=== PATIENT | female | born 1980 | race American Indian/Alaskan Native ===

== ENCOUNTER 2017-12-29 20:21 | Emergency (ER) | payer SELFPAY ==
[2017-12-29 21:38] LABS: HCG Qualitative,Urine Negative (Negative)
[2017-12-29 21:42] LABS: Amorphous Crystals,Urine 1+; Bilirubin,Urine NEG (Negative); Blood,Urine NEG (Negative); Color,Urine Yellow (Yellow); Protein,Urine <15 mg/dL mg/dL (Negative); RBC,Urine < 1.0 /HPF (0.0-6.0); Urobilinogen,Urine < 2.0 mg/dL (<2.0)
[2017-12-29 21:46] LABS: Amphetamine Screen,Urine PRESUMPTIVE NEGATIVE; Benzodiazepines Screen,Urine PRESUMPTIVE NEGATIVE; Cannabinoid Screen,Urine PRESUMPTIVE NEGATIVE; Methadone Screen,Urine PRESUMPTIVE NEGATIVE; Opiate Screen,Urine PRESUMPTIVE NEGATIVE
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
[2017-12-29 21:57] LABS: Hematocrit 36.9 % (30.3-42.9); Hemoglobin 11.7 gm/dl (10.1-14.3); Mean Corpuscular HGB Conc 32 % (30-34); Mean Corpuscular Volume 75 fl (79-97); Platelet Count 236 K/mm3 (140-440); Red Blood Count 4.96 M/mm3 (3.65-5.03); Red Cell Distribution Width 14.7 % (13.2-15.2)
[2017-12-29 21:58] LABS: Cocaine Screen,Urine PRESUMPTIVE POSITIVE
[2017-12-29 21:59] LABS: Mean Corpuscular Hemoglobin 24 pg (28-32)
[2017-12-29 22:02] LABS: Alanine Aminotransferase 23 units/L (7-56); Albumin 4.5 g/dL (3.9-5); BUN/Creatinine Ratio 12; Blood Urea Nitrogen 11 mg/dL (7-17); Calcium 9.8 mg/dL (8.4-10.2); Hemolysis Index 1
[2017-12-29] MEDS: MACROBID PO SCH (22:53)
[2017-12-29 22:54] LABS: Eosinophils % (Manual) 0 % (0.0-4.3); Total Cells Counted 100
[2017-12-29 22:55] LABS: Anisocytosis 1+; Platelet Estimate Consistent w Auto
[2017-12-30 03:50] VITALS: BP 105/60
[2017-12-30] MEDS: MACROBID PO SCH (11:00)
== END 2017-12-30 14:00 | disposition home or self-care (01) ==
LOC: ED 20:21
DX: B20 Human immunodeficiency virus [HIV] disease (principal); N30.00 Acute cystitis without hematuria; Z87.891 Personal history of nicotine dependence
CPT/HCPCS: 36415; 80053; 80307; 81001; 81025; 82962; 85007; 85025; 99283; G0480; 80320